=== PATIENT | female | born 1995 | race African-American/Black ===

== ENCOUNTER 2017-07-15 13:14 | Emergency (ER) | payer SELFPAY | END 2017-07-15 13:19 | disposition left against medical advice (07) | LOC: ER 13:14 | DX: S71.132A Puncture wound without foreign body, left thigh, initial encounter (principal); S31.134A Puncture wound of abdominal wall without foreign body, left lower quadrant without penetration into peritoneal cavity, initial encounter; S81.032A Puncture wound without foreign body, left knee, initial encounter; S61.512A Laceration without foreign body of left wrist, initial encounter; Z53.21 Procedure and treatment not carried out due to patient leaving prior to being seen by health care provider; Y08.89XA Assault by other specified means, initial encounter; Y93.89 Activity, other specified; Y92.89 Other specified places as the place of occurrence of the external cause; Y99.8 Other external cause status ==